=== PATIENT | female | born 1945 ===

== ENCOUNTER 2021-01-11 09:19 | Day surgery (SDC) | payer MEDICARE ==
[2021-01-11] MEDS ORDERED: Sodium Chloride 0.9(Preservative Free) 10 ML IJ ONE (09:20)
[2021-01-11] MEDS ORDERED: Depo-Medrol 40 MG/ML IM ONE (09:20)
[2021-01-11] MEDS ORDERED: Xylocaine 1% Vial 30 ML PF IJ ONE (09:20)
[2021-01-11] MEDS ORDERED: Decadron 4 MG INJ IV ONE (09:20)
[2021-01-11] MEDS ORDERED: DIPRIVAN 200 MG/20 ML IV ONE (10:48)
[2021-01-11] MEDS ORDERED: Ketamine HCl 50 MG/ML ONE (10:49)
[2021-01-11] MEDS ORDERED: TORAdol 30 mg Injection ONE (11:15)
--- NOTE | 2021-01-11 12:37 | XRAY ---
Indication: Right piriformis muscle injection. Intraoperative fluoroscopy was provided for 14 seconds. Single digital spot image obtained prone submitted for interpretation demonstrates posterior needle tip projecting over the expected right piriformis muscle. Small amount of contrast injected for needle tip placement. Correlate with intraoperative findings/report.
--- NOTE | 2021-01-11 12:45 | XRAY ---
Indication: Right L4-S1 transforaminal WAI. Intraoperative fluoroscopy was provided for 26 seconds. 3 digital spot image submitted for interpretation demonstrates posterior needle tips projecting over the expected right L4 and L5 nerve roots. Small amount of contrast injected for needle tip placement. Correlate with intraoperative findings/report.
--- NOTE | 2021-01-11 12:53 | XRAY ---
14 seconds fluoroscopy time in surgery for right piriformis muscle injection.
--- NOTE | 2021-01-11 13:04 | XRAY ---
26 seconds fluoroscopy time in surgery for right L4-S1 transforaminal WAI.
[2021-01-11] MEDS ORDERED: Lactated Ringers 1,000 ML IV ONE (13:51)
== END 2021-01-11 11:14 | disposition home or self-care (01) ==
LOC: SDC-PAIN 09:19
PROVIDERS: ATTEND Psychiatry & Neurology Pain Medicine
DX: M54.16 Radiculopathy, lumbar region (principal); M79.18 Myalgia, other site; E11.9 Type 2 diabetes mellitus without complications; E03.9 Hypothyroidism, unspecified; F31.9 Bipolar disorder, unspecified; Z79.899 Other long term (current) drug therapy
CPT/HCPCS: 20552; 64483; 64484; 72020; 72100; 77002; 77003; 82947; 99100; J1030; J1100; J1885; J2001; J2704; Q9966